=== PATIENT | female | born 1995 | race Caucasian/White ===

== ENCOUNTER 2017-07-25 14:53 | Emergency (ER) | payer MEDICAID ==
[~2017-07-25] VITALS: Ht 160 cm; Wt 53.6 kg
[~2017-07-25 14:53] MED LIST: NEXPLANON68 MG ID; NORCO 325 MG-51 TAB PO; PEN-VEE K500 MG PO
[2017-07-25 14:59] VITALS: BP 120/67; TEMP 97.5
[2017-07-25] MEDS ORDERED: XANAX 1MG1 MG PO (15:23)
[2017-07-25] MEDS ORDERED: AMOXICILLIN 50500 MG PO (16:09)
[2017-07-25 16:14] VITALS: PULSE 61
== END 2017-07-25 16:14 | disposition home or self-care (01) ==
LOC: COL.ER 14:53
DX: K02.9 Dental caries, unspecified (principal); F90.9 Attention-deficit hyperactivity disorder, unspecified type; R22.9 Localized swelling, mass and lump, unspecified; F41.9 Anxiety disorder, unspecified; F17.210 Nicotine dependence, cigarettes, uncomplicated; Z90.89 Acquired absence of other organs
CPT/HCPCS: J7512

== ENCOUNTER 2017-10-18 03:48 | Emergency (ER) | payer MEDICAID ==
[~2017-10-18] VITALS: Ht 160 cm; Wt 59.1 kg
[~2017-10-18 03:48] MED LIST changes: +AMOXICILLIN 50500 MG PO; +XANAX 1MG1 MG PO
[2017-10-18 03:58] VITALS: TEMP 97.7
[2017-10-18] MEDS ORDERED: ADDERALL20 MG PO (04:03)
[2017-10-18] MEDS ORDERED: XANAX2 MG PO (04:03)
[2017-10-18 04:27] LABS: BASO # 0.1 (0.0-0.2); BASO % 0.3 % (0.0-2.0); EOS # 0.1 (0.0-0.7); EOS % 0.3 % (0-4.0); GRAN # 16.9 (1.4-6.5); GRAN % 88.5 % (42.2-75.2); HEMATOCRIT 39.8 % (37.0-47.0); LYMPH # 1.4 (1.2-3.4); LYMPH % 7.6 % (20.0-51.0); MEAN CELL VOLUME 92 fl (80.0-100.0); MEAN CORPUSCULAR HEMOGLOBIN 30 pg (27.0-31.0); MEAN CORPUSCULAR HGB CONC 33 g/dl (33.0-37.0); MEAN PLATELET VOLUME 10.3 fl (7.4-10.4); MONO # 0.5 (0.1-0.6); MONO % 2.8 % (1.7-9.3); PLATELET COUNT 218 K/mm3 (130-400); RED BLOOD COUNT 4.33 M/mm3 (4.10-5.30); REDCELL DISTRIBUTION WIDTH-CV 12.9 % (11.5-14.5)
[2017-10-18 04:39] LABS: ALANINE AMINOTRANSFERASE 40 U/L (9-52); ALBUMIN 4.2 gm/dL (3.5-5.0); ALKALINE PHOSPHATASE 81 U/L (50-136); ANION GAP 12 mmol/L (7-16); AST,SGOT 28 U/L (15-37); BILIRUBIN,TOTAL 0.7 mg/dL (0.0-1.0); BLOOD UREA NITROGEN 9 mg/dL (7-17); C-REACTIVE PROTEIN 7.7 mg/dL (0.0-0.9); CALCIUM 8.9 mg/dL (8.4-10.2); CARBON DIOXIDE 28 mmol/L (22-30); CHLORIDE 101 mmol/L (98-107); CREATININE, serum 0.71 mg/dL (0.52-1.25); GLUCOSE 110 mg/dL (74-106); POTASSIUM 3.6 mmol/L (3.4-5.0); SODIUM 141 mmol/L (137-145); TOTAL PROTEIN 7.3 gm/dL (6.4-8.2)
[2017-10-18 04:42] LABS: ALCOHOL(ethanol),MEDICAL < 10 mg/dL; LIPASE < 10 U/L (23-300)
[2017-10-18 05:17] LABS: COLLECTION METHOD CLEAN CATCH
[2017-10-18 05:24] LABS: MUCOUS Present /lpf; PH 5 (5-8); SQUAMOUS EPITHELIAL 0-2 /hpf; URINE APPEARANCE Clear; URINE BACTERIA None Seen /hpf; URINE BILIRUBIN Negative (NEGATIVE); URINE BLOOD Negative (NEGATIVE); URINE COLOR Yellow; URINE GLUCOSE Negative (NEGATIVE); URINE KETONE Negative (NEGATIVE); URINE LEUKOCYTE ESTERASE 1+ (NEGATIVE); URINE NITRATE Negative (NEGATIVE); URINE PROTEIN(semi-quant) 1+ (NEGATIVE); URINE RBC 0-2 /hpf; URINE UROBILINOGEN >=4.0 mg/dL (NEGATIVE)
[2017-10-18 05:32] LABS: TRICYCLIC ANTIDEPRESS URINE NEGATIVE
[2017-10-18] MEDS ORDERED: MACROBID 1100 MG/CAP PO (06:40)
[2017-10-18 07:10] VITALS: BP 92/47; PULSE 108
[2017-10-18] MEDS ORDERED: DOXYCYCLINE HY100 MG PO (08:56)
== END 2017-10-18 07:40 | disposition home or self-care (01) ==
LOC: COL.ER 03:48
PROVIDERS: Family Medicine
DX: N73.9 Female pelvic inflammatory disease, unspecified (principal); N39.0 Urinary tract infection, site not specified; F12.10 Cannabis abuse, uncomplicated; F15.10 Other stimulant abuse, uncomplicated; F11.10 Opioid abuse, uncomplicated
CPT/HCPCS: J0696; J1885; J2405; J7030; J7120; Q9967

== ENCOUNTER 2017-12-10 04:00 | Emergency (ER) | payer MEDICAID ==
[~2017-12-10 04:00] MED LIST changes: +ADDERALL20 MG PO; +DOXYCYCLINE HY100 MG PO; +MACROBID 1100 MG/CAP PO; +XANAX2 MG PO
[2017-12-10 04:05] VITALS: BP 111/64; TEMP 97
[2017-12-10 04:20] LABS: BASO % 0.5 % (0.0-2.0); EOS # 0.2 (0.0-0.7); EOS % 3.2 % (0-4.0); GRAN # 3.6 (1.4-6.5); GRAN % 58.2 % (42.2-75.2); HEMATOCRIT 36.8 % (37.0-47.0); LYMPH % 31.7 % (20.0-51.0); MEAN CELL VOLUME 90 fl (80.0-100.0); MEAN CORPUSCULAR HEMOGLOBIN 29 pg (27.0-31.0); MEAN CORPUSCULAR HGB CONC 33 g/dl (33.0-37.0); MEAN PLATELET VOLUME 9.8 fl (7.4-10.4); MONO # 0.4 (0.1-0.6); MONO % 6.1 % (1.7-9.3); PLATELET COUNT 148 K/mm3 (130-400); RED BLOOD COUNT 4.09 M/mm3 (4.10-5.30); REDCELL DISTRIBUTION WIDTH-CV 13.5 % (11.5-14.5)
[2017-12-10 04:30] LABS: ALBUMIN 3.7 gm/dL (3.5-5.0); BILIRUBIN,TOTAL 0.2 mg/dL (0.0-1.0); CALCIUM 8.7 mg/dL (8.4-10.2); CREATININE, serum 0.71 mg/dL (0.52-1.25); POTASSIUM 3.5 mmol/L (3.4-5.0)
[2017-12-10] MEDS ORDERED: PEPCID 20MG TAB20 MG PO (05:27)
[2017-12-10 05:59] VITALS: PULSE 96
== END 2017-12-10 06:00 | disposition home or self-care (01) ==
LOC: COL.ER 04:00
PROVIDERS: Emergency Medicine
DX: K29.70 Gastritis, unspecified, without bleeding (principal); J02.9 Acute pharyngitis, unspecified; F41.9 Anxiety disorder, unspecified; F17.210 Nicotine dependence, cigarettes, uncomplicated
CPT/HCPCS: C9113; J7030

== ENCOUNTER 2018-03-01 22:35 | Emergency (ER) | payer MEDICAID ==
[~2018-03-01] VITALS: Ht 160 cm; Wt 54.5 kg
[~2018-03-01 22:35] MED LIST changes: +PEPCID 20MG TAB20 MG PO
[2018-03-01 22:41] VITALS: BP 129/79; TEMP 98.7
[2018-03-01 23:27] VITALS: PULSE 81
== END 2018-03-01 23:27 | disposition home or self-care (01) ==
LOC: COL.ER 22:35
DX: Z20.2 Contact with and (suspected) exposure to infections with a predominantly sexual mode of transmission (principal)
CPT/HCPCS: J0696

== ENCOUNTER 2018-03-07 17:33 | Emergency (ER) | payer MEDICAID ==
[~2018-03-07] VITALS: Ht 162.6 cm; Wt 54.5 kg
[2018-03-07 17:34] VITALS: TEMP 100.7
[2018-03-07 17:58] LABS: COLLECTION METHOD CATHETER
[2018-03-07 18:09] LABS: MUCOUS Present /lpf; PH 6 (5-8); URINE APPEARANCE Cloudy; URINE BACTERIA None Seen /hpf; URINE BILIRUBIN Negative (NEGATIVE); URINE BLOOD 3+ (NEGATIVE); URINE COLOR Yellow; URINE GLUCOSE Negative (NEGATIVE); URINE KETONE Negative (NEGATIVE); URINE LEUKOCYTE ESTERASE Trace (NEGATIVE); URINE NITRATE Negative (NEGATIVE); URINE PROTEIN(semi-quant) Negative (NEGATIVE); URINE RBC 20-50 /hpf; URINE UROBILINOGEN Negative (NEGATIVE)
[2018-03-07 18:20] LABS: TRICYCLIC ANTIDEPRESS URINE NEGATIVE
[2018-03-07 18:40] LABS: BASO % 0.4 % (0.0-2.0); EOS # 0.2 (0.0-0.7); EOS % 1.7 % (0-4.0); GRAN # 5.7 (1.4-6.5); HEMATOCRIT 38.3 % (37.0-47.0); HEMOGLOBIN 12.3 g/dl (12.5-16.0); LYMPH # 3.9 (1.2-3.4); LYMPH % 37.5 % (20.0-51.0); MEAN CELL VOLUME 89 fl (80.0-100.0); MEAN CORPUSCULAR HEMOGLOBIN 29 pg (27.0-31.0); MEAN CORPUSCULAR HGB CONC 32 g/dl (33.0-37.0); MEAN PLATELET VOLUME 10.3 fl (7.4-10.4); MONO # 0.5 (0.1-0.6); MONO % 5.1 % (1.7-9.3); PLATELET COUNT 258 K/mm3 (130-400); RED BLOOD COUNT 4.32 M/mm3 (4.10-5.30); REDCELL DISTRIBUTION WIDTH-CV 13.2 % (11.5-14.5)
[2018-03-07 18:54] LABS: ACETAMINOPHEN < 10 ug/mL (10-30); ALANINE AMINOTRANSFERASE 34 U/L (9-52); ALCOHOL(ethanol),MEDICAL < 10 mg/dL; ALKALINE PHOSPHATASE 59 U/L (50-136); ANION GAP 8 mmol/L (7-16); AST,SGOT 34 U/L (15-37); BILIRUBIN,TOTAL 0.3 mg/dL (0.0-1.0); BLOOD UREA NITROGEN 10 mg/dL (7-17); CALCIUM 8.9 mg/dL (8.4-10.2); CARBON DIOXIDE 29 mmol/L (22-30); CHLORIDE 103 mmol/L (98-107); CREATININE, serum 0.73 mg/dL (0.52-1.25); GLUCOSE 85 mg/dL (74-106); POTASSIUM 3.5 mmol/L (3.4-5.0); SALICYLATE < 1.0 mg/dL; SODIUM 141 mmol/L (137-145); TOTAL PROTEIN 6.9 gm/dL (6.4-8.2)
[2018-03-07 21:47] VITALS: BP 109/76; PULSE 92
== END 2018-03-07 21:48 | disposition home or self-care (01) ==
LOC: COL.ER 17:33
PROVIDERS: Family Medicine
DX: T40.2X1A Poisoning by other opioids, accidental (unintentional), initial encounter (principal)
CPT/HCPCS: J2310

== ENCOUNTER 2018-03-24 14:30 | Emergency (ER) | payer MEDICAID ==
[~2018-03-24] VITALS: Ht 160 cm; Wt 52.3 kg
[2018-03-24 14:33] VITALS: BP 123/67; PULSE 96; TEMP 98.6
== END 2018-03-24 15:16 | disposition home or self-care (01) ==
LOC: COL.ER 14:30
DX: Z76.0 Encounter for issue of repeat prescription (principal); F90.9 Attention-deficit hyperactivity disorder, unspecified type; F41.9 Anxiety disorder, unspecified; F12.90 Cannabis use, unspecified, uncomplicated